=== PATIENT | female | born 1980 | race Caucasian/White ===

== ENCOUNTER 2017-05-18 23:32 | Emergency (ER) | payer OTHER ==
[2017-05-18 23:37] VITALS: BP 146/72; PULSE 102; RESP 20; TEMP 99; O2SAT 98
[2017-05-18] MEDS ORDERED: METH40TA PO (23:50)
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
--- NOTE | 2017-05-19 00:22 | RADRPT ---
EXAM DATE/TIME: 05/19/2017 00:01 [facility] COMPARISON: No previous studies available for comparison. INDICATIONS : ASSISTED. MEDICAL HISTORY : None. SURGICAL HISTORY : None. ENCOUNTER: Initial ACUITY: 1 day PAIN SCORE: 0/10 LOCATION: Left Foot FINDINGS: Three view examination of the left foot demonstrates no soft tissue swelling, dislocation, or fractur e. The tarsal bones appear intact. The interphalangeal and metatarsophalangeal joints are intact. The calcaneus is intact. Bony mineralization is normal. CONCLUSION: Unremarkable examination of the left foot. Vernon Cruz MD on May 19, 2017 at 0:19 Board Certified Radiologist. This report was verified electronically.
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
== END 2017-05-19 05:48 | disposition home or self-care (01) ==
LOC: NEPD 23:32
DX: T24.201A Burn of second degree of unspecified site of right lower limb, except ankle and foot, initial encounter (principal); S50.312A Abrasion of left elbow, initial encounter; S60.511A Abrasion of right hand, initial encounter; S90.812A Abrasion, left foot, initial encounter; S90.512A Abrasion, left ankle, initial encounter; V29.9XXA Motorcycle rider (driver) (passenger) injured in unspecified traffic accident, initial encounter
CPT/HCPCS: 73080; 73130; 73610; 73630; 99284